=== PATIENT | male | born 1955 | race Caucasian/White ===

== ENCOUNTER 2016-03-14 05:23 | Day surgery (SDC) | payer OTHER ==
[2016-03-14] MEDS ORDERED: LR 1,000 ML IV ONE (06:27)
[2016-03-14] MEDS ORDERED: BUPIVACAINE/EPI 0.5% 30 ML SDV ONE (07:08)
[2016-03-14] MEDS ORDERED: BUPIVACAINE 0.5% 30 ML SDV ONE (07:08)
[2016-03-14] MEDS ORDERED: POLYMYXIN B SULFATE 500,000 UNIT/10 ML SYR IRR ONE (07:09)
[2016-03-14] MEDS ORDERED: MIDAZOLAM 2 MG/2 ML VIAL ONE (07:09)
[2016-03-14] MEDS ORDERED: PROPOFOL 200 MG/20 ML VIAL ONE (07:13)
[2016-03-14] MEDS ORDERED: fentaNYL 250 MCG/5 ML INJ ONE (07:13)
[2016-03-14] MEDS ORDERED: LIDOCAINE 2% 5 ML SDV ONE (07:14)
[2016-03-14] MEDS ORDERED: LIDOCAINE 2% JELLY 5 ML TUBE ONE (07:15)
[2016-03-14] MEDS ORDERED: BUPIVACAINE/EPI 0.25% 30 ML SDV ONE (07:19)
[2016-03-14] MEDS ORDERED: ceFAZolin 2 GM/DEXTROSE 100 ML IV ONE (07:30)
[2016-03-14] MEDS ORDERED: DEXAMETHASONE 4 MG/ML VIAL ONE ×2 (08:02→08:03)
[2016-03-14] MEDS ORDERED: ONDANSETRON 4 MG/2 ML VIAL ONE (08:12)
--- NOTE | 2016-03-14 15:33 | GOP ---
[f rep st] OPERATIVE REPORT DATE OF OPERATION: 03/14/2016 SURGEON: Cristal Vera MD SMELTER LINER: Ronald Ventura CFA ANESTHESIA: General with interscalene block. PREOPERATIVE DIAGNOSIS: Partial-thickness rotator cuff tear, superior labral anterior-posterior tear, impingement syndrome, and acromioclavicular arthritis, right shoulder. POSTOPERATIVE DIAGNOSIS: Partial-thickness rotator cuff tear, superior labral anterior-posterior tear, impingement syndrome, and acromioclavicular arthritis, right shoulder. PROCEDURE PERFORMED: Arthroscopy, arthroscopic debridement of superior labral anterior-posterior tear and biceps tendon, with subacromial decompression, distal clavicle excision and biceps tenodesis, right shoulder. FINDINGS: A diagnostic arthroscopy of the right shoulder was performed with the following findings: The patient had normal glenohumeral articular cartilage. The labrum was carefully inspected and the patient did have a significant SLAP tear extending from the 11 o'clock position to the 2 o'clock position. There was instability of the biceps anchor. There was fraying and hyperemia of the biceps anchor. The biceps tendon was released for later tenodesis. The SLAP tear was debrided. The inferior and posterior labrum were intact. The rotator cuff was inspected and the supraspinatus and infraspinatus were intact from the articular side. The subscapularis was also carefully inspected and noted to be intact. The scope was then placed in the subacromial space and the patient did have a very tight subacromial space with a large anterolateral subacromial spur. There was a large spur on the undersurface of the distal clavicle as well. The patient had some fraying of the bursal surface of the supraspinatus and infraspinatus due to impingement, but there was no high-grade partial thickness tear. A subacromial decompression was performed. Approximately 10 mm was taken from the anterolateral acromion. This was carried across to the AC joint. This decompressed the subacromial space nicely. The distal 1 cm of the clavicle was then excised, further decompressing the subacromial space. Once this was completed, the biceps tendon was retrieved from the bicipital groove and a biceps tenodesis was performed. A drill hole was placed at the base of the bicipital groove and the tendon was inserted and fixated with a 7 x 23 Bio-Tenodesis Screw. Excellent fixation of the biceps was achieved. ESTIMATED BLOOD LOSS: Minimal. PROCEDURE: The patient was taken to the operating room, placed in the supine position on the operating table. Following induction of adequate interscalene and general anesthesia, the patient was turned to the lateral decubitus position and the right shoulder and arm were prepped and draped in the usual sterile manner. The patient received 2 g of IV Ancef. The arm was placed in 10 pounds of longitudinal traction. The arthroscope was introduced through a posterior portal and the instrumentation through an anterior portal. A diagnostic arthroscopy was performed with the above-noted findings. Our attention was turned first to the intra-articular pathology. The shaver was used to debride the SLAP tear and a basket was used to perform a biceps tenotomy. Once this was completed, the scope was placed in the subacromial space and a lateral working portal was created. The patient had severe subacromial bursitis which was also debrided. The undersurface of the acromion was cleared and then the bur was inserted and a subacromial decompression was performed. The rasp was used to smooth the undersurface of the acromion. Once this was completed, the instrumentation was removed from the shoulder and a 3 cm incision was made along the distal end of the clavicle. The incision was carried down through subcutaneous tissue to the AC joint. The AC joint was incised in a T-fashion and the fascia was retracted. The distal 1 cm of the clavicle was excised. The rasp was used to smooth the distal end of the clavicle. The fascia was then repaired using 0 Vicryl followed by 2-0 Vicryl in the subcutaneous tissue and 4-0 Vicryl in the skin. Steri-Strips were applied. The patient was turned to a beach chair position and a 4 cm incision was made along the bicipital groove. The incision was carried down through subcutaneous tissue to the deltoid. The deltoid was split in line with the incision and retracted with a Crista retractor. The bicipital groove was identified and the biceps tendon was retrieved. The subscapularis was visualized at this time and noted to be intact. The biceps tendon was prepared for a tenodesis with a FiberLoop suture. A drill hole was then placed at the base of the bicipital groove and the tendon was inserted and fixated with a 7 x 23 Bio-Tenodesis Screw. Excellent fixation of the tendon was obtained. The wound was irrigated out and closed using 2-0 Vicryl followed by 4-0 Vicryl. Steri-Strips were applied. The portals were all closed using 4-0 nylon. Sterile dressings were applied. The patient tolerated the procedure well and there were no complications. Estimated blood loss minimal. Final sponge and needle counts were correct. The patient was transported to the recovery room in good condition. /[id number]/MODL MTDD
== END 2016-03-14 11:40 | disposition home or self-care (01) ==
LOC: FSGY 05:23
PROVIDERS: ATTEND Orthopaedic Surgery
PROC: 0LS14ZZ Reposition Right Shoulder Tendon, Percutaneous Endoscopic Approach (ICD-10-PCS; 2016-03-14)
PROC: 0MN14ZZ Release Right Shoulder Bursa and Ligament, Percutaneous Endoscopic Approach (ICD-10-PCS; principal; 2016-03-14 07:15)
PROC: 0PB94ZZ Excision of Right Clavicle, Percutaneous Endoscopic Approach (ICD-10-PCS; 2016-03-14 07:15)
PROC: 0MB14ZZ Excision of Right Shoulder Bursa and Ligament, Percutaneous Endoscopic Approach (ICD-10-PCS; 2016-03-14 07:15)
DX: S43.431D Superior glenoid labrum lesion of right shoulder, subsequent encounter (principal); M75.41 Impingement syndrome of right shoulder; M75.21 Bicipital tendinitis, right shoulder; M75.51 Bursitis of right shoulder; M25.511 Pain in right shoulder; I48.2 Chronic atrial fibrillation; I51.3 Intracardiac thrombosis, not elsewhere classified; M13.811 Other specified arthritis, right shoulder; Z87.891 Personal history of nicotine dependence; Z82.49 Family history of ischemic heart disease and other diseases of the circulatory system; Z79.01 Long term (current) use of anticoagulants; Z88.0 Allergy status to penicillin
CPT/HCPCS: C1713; J0171; J0690; J1100; J2250; J2405; J2704; J3010